=== PATIENT | male | born 1955 | race Caucasian/White ===

== ENCOUNTER → 2024-02-06 10:48 | Outpatient (REF) | payer OTHER, SELFPAY | LOC: RAD 10:48 | PROVIDERS: ATTENDING PHYSICIAN Physician Assistant | DX: M54.50 Low back pain, unspecified (principal); M53.3 Sacrococcygeal disorders, not elsewhere classified | CPT/HCPCS: 72110; 72220 ==

== ENCOUNTER → 2024-02-23 14:45 | Outpatient (REF) | payer OTHER, SELFPAY | LOC: HWRCS 14:45 | PROVIDERS: ATTENDING PHYSICIAN Physician Assistant | DX: I10 Essential (primary) hypertension (principal); R01.1 Cardiac murmur, unspecified | CPT/HCPCS: 93306 ==

== ENCOUNTER → 2024-03-26 11:12 | Outpatient (REF) | payer OTHER, SELFPAY | LOC: RAD 11:12 | PROVIDERS: ATTENDING PHYSICIAN Nurse Practitioner Adult Health; FAMILY PHYSICIAN Family Medicine | DX: D64.9 Anemia, unspecified (principal); R53.82 Chronic fatigue, unspecified; M54.50 Low back pain, unspecified; M54.51 Vertebrogenic low back pain | CPT/HCPCS: 73523 ==

== ENCOUNTER → 2024-04-24 20:06 | Outpatient (REF) | payer OTHER, SELFPAY | LOC: MRI 20:06 | PROVIDERS: ATTENDING PHYSICIAN Nurse Practitioner Adult Health; FAMILY PHYSICIAN Family Medicine | DX: D64.9 Anemia, unspecified (principal); R53.82 Chronic fatigue, unspecified; M54.50 Low back pain, unspecified | CPT/HCPCS: 72158; A9575 ==

== ENCOUNTER → 2024-05-15 06:50 | Outpatient (REF) | payer OTHER, SELFPAY ==
[2024-05-15 07:20] VITALS: BP 136/87; BP_SYST 62
[2024-05-15 07:21] LABS: Hematocrit 30.3 % (39.0-52.0); Hemoglobin 10.4 g/dL (13.0-18.0); Mean Corp Hgb Conc. 34.3 g/dL (33.0-37.0); Mean Corpuscular Hgb 33.5 pg (27.0-31.0); Mean Corpuscular Volume 97.7 fL (80.0-94.0); Mean Platelet Volume 9.2 fL (7.4-10.4); Platelet Count 253 10^3/uL (130-400); Red Cell Dist. Width 14.5 % (11.5-14.5); White Blood Cell Count 5.8 10^3/uL (4.8-10.8)
[2024-05-15 07:49] LABS: INR 1.01; PT 13.1 Sec (11.4-14.6)
[2024-05-15 08:10] LABS: % Basophils 0.2 % (0-2); % Eosinophils 1.5 % (0-6); % Immature Granulocytes 1.7 % (0-0.5); % Lymphocytes 50.2 % (20.5-51.1); % Monocytes 9.3 % (1.7-9.3); % Neutrophils 37.1 % (42.2-75.2); Absolute Eosinophils 0.1 10^3/uL (0-0.7); Absolute Immature Granulocytes 0.1 10^3/uL (0-0.05); Absolute Lymphocytes 2.9 10^3/uL (1.2-3.4); Absolute Monocytes 0.5 10^3/uL (0.1-0.6); Absolute Neutrophils 2.2 10^3/uL (1.4-6.5); Nucleated Red Blood Cells % 0 % (-)
[2024-05-15 09:07] VITALS: BP 122/76
== END ==
LOC: RADI 06:50
PROVIDERS: ATTENDING PHYSICIAN Internal Medicine Hematology & Oncology; FAMILY PHYSICIAN Family Medicine
DX: C90.00 Multiple myeloma not having achieved remission (principal)
CPT/HCPCS: 88305; 88311; 88312; 36415; 38222; 77012; 85025; 85610; 88313; 88341; 88342

== ENCOUNTER → 2024-06-07 08:17 | Outpatient (REF) | payer OTHER, SELFPAY | LOC: PET 08:17 | PROVIDERS: ATTENDING PHYSICIAN Internal Medicine Hematology & Oncology | DX: C90.00 Multiple myeloma not having achieved remission (principal) | CPT/HCPCS: 78816; A9552 ==

== ENCOUNTER → 2024-06-11 16:00 | Outpatient (REF) | payer OTHER, SELFPAY ==
[2024-06-11 15:16] LABS: Hematocrit 29.1 % (39.0-52.0); Mean Corp Hgb Conc. 34.4 g/dL (33.0-37.0); Mean Corpuscular Hgb 32.8 pg (27.0-31.0); Mean Corpuscular Volume 95.4 fL (80.0-94.0); Mean Platelet Volume 9.6 fL (7.4-10.4); Platelet Count 263 10^3/uL (130-400); Red Blood Cell Count 3.05 10^6/uL (4.70-6.10); Red Cell Dist. Width 14.3 % (11.5-14.5); White Blood Cell Count 5.1 10^3/uL (4.8-10.8)
[2024-06-11 15:18] LABS: ALT (SGPT) 15 U/L (0-50); AST (SGOT) 20 U/L (17-59); Alkaline Phosphatase 107 U/L (38-126); Blood Urea Nitrogen 18 mg/dl (9-20); Calcium 10.6 mg/dl (8.4-10.2); Carbon Dioxide 25 mmol/L (22-30); Chloride 105 mmol/L (98-107); Glucose 99 mg/dl (70-99); Potassium 4.4 mmol/L (3.5-5.1); Sodium 141 mmol/L (135-145); Total Bilirubin 0.2 mg/dl (0.2-1.3); Total Protein 8.2 g/dl (6.3-8.2); eGFR > 60.00
[2024-06-11 16:52] LABS: % Basophils 0.2 % (0-2); % Eosinophils 1.8 % (0-6); % Immature Granulocytes 1.2 % (0-0.5); % Lymphocytes 50.7 % (20.5-51.1); % Monocytes 8.3 % (1.7-9.3); % Neutrophils 37.8 % (42.2-75.2); Absolute Eosinophils 0.1 10^3/uL (0-0.7); Absolute Immature Granulocytes 0.1 10^3/uL (0-0.05); Absolute Lymphocytes 2.6 10^3/uL (1.2-3.4); Absolute Monocytes 0.4 10^3/uL (0.1-0.6); Absolute Neutrophils 1.9 10^3/uL (1.4-6.5); Nucleated Red Blood Cells % 0 % (-)
== END ==
LOC: OIDL 16:00
PROVIDERS: ATTENDING PHYSICIAN Internal Medicine Hematology & Oncology
DX: D64.9 Anemia, unspecified (principal)
CPT/HCPCS: 80053; 85025; 86850; 86900; 86901

== ENCOUNTER → 2024-10-16 17:14 | Outpatient (REF) | payer OTHER, SELFPAY | LOC: RAD 17:14 | PROVIDERS: ATTENDING PHYSICIAN Family Medicine | DX: R06.02 Shortness of breath (principal) | CPT/HCPCS: 71046 ==

== ENCOUNTER 2024-10-19 16:28 | Inpatient (IN) | payer OTHER, SELFPAY ==
[2024-10-19] VITALS (11 sets, daily range): BP systolic 112–175; BP diastolic 59–91; BMI 29.0
[2024-10-19 13:30] LABS: Hematocrit 32.7 % (39.0-52.0); Hemoglobin 11.4 g/dL (13.0-18.0); Mean Corp Hgb Conc. 34.9 g/dL (33.0-37.0); Mean Corpuscular Hgb 32.5 pg (27.0-31.0); Mean Corpuscular Volume 93.2 fL (80.0-94.0); Mean Platelet Volume 9.5 fL (7.4-10.4); Platelet Count 233 10^3/uL (130-400); Red Blood Cell Count 3.51 10^6/uL (4.70-6.10); Red Cell Dist. Width 14.1 % (11.5-14.5); White Blood Cell Count 4.8 10^3/uL (4.8-10.8)
[2024-10-19 13:36] LABS: Lactic Acid 1.2 mmol/L (0.7-2.0)
[2024-10-19 13:39] LABS: ALT (SGPT) 50 U/L (0-50); AST (SGOT) 48 U/L (17-59); Albumin 3.6 g/dl (3.5-5.0); Alkaline Phosphatase 89 U/L (38-126); Blood Urea Nitrogen 16 mg/dl (9-20); Calcium 6.6 mg/dl (8.4-10.2); Carbon Dioxide 33 mmol/L (22-30); Chloride 92 mmol/L (98-107); Glucose 122 mg/dl (70-99); Sodium 134 mmol/L (135-145); Total Bilirubin 0.3 mg/dl (0.2-1.3); Total Protein 6.2 g/dl (6.3-8.2); eGFR > 60.00
[2024-10-19 14:02] LABS: % Basophils 0.4 % (0-2); % Eosinophils 0.8 % (0-6); % Immature Granulocytes 0.8 % (0-0.5); % Lymphocytes 17.9 % (20.5-51.1); % Monocytes 9.5 % (1.7-9.3); % Neutrophils 70.6 % (42.2-75.2); Absolute Lymphocytes 0.9 10^3/uL (1.2-3.4); Absolute Monocytes 0.5 10^3/uL (0.1-0.6); Absolute Neutrophils 3.4 10^3/uL (1.4-6.5); Nucleated Red Blood Cells % 0 % (-)
--- NOTE | 2024-10-19 15:41 | ED.GENMED ---
History of Present Illness
General
Chief Complaint: Cough
Source: patient, spouse and previous radiology exam (Chest x-ray shows pneumonia from 10/16/2024)
Exam Limitations: none
Time Seen by Provider: 10/19/24 15:17
Nursing documentation reviewed up to this point in time: agreed with
History of Present Illness
History of Present Illness:
69-year-old male presents emergency department due to shortness of breath and cough. He is under current treatment for multiple myeloma. He was diagnosed with pneumonia 3 days ago and placed on doxycycline. He is not getting better. Feels short
of breath.
Past History
Past History
ED Past Medical History: Cancer (Multiple myeloma) and Hypothyroidism
ED Past Surgical History: Other (Thyroidectomy. Takes Synthroid)
Social History
Tobacco: Non-smoker
Alcohol: None
Drug: None
Personal:
Living: with family
Employment: Employed
Review of Systems
Review of Systems
Allergies reviewed?: Yes
All Other Systems: Not applicable
Constitutional: Reports no symptoms
EENT: Reports no symptoms
Respiratory: Reports cough and trouble breathing
Cardiac: Reports no symptoms
ABD/GI: Reports no symptoms
: Reports no symptoms
Musculoskeletal: Reports no symptoms
Skin: Reports no symptoms
Neurological: Reports other (Confusion)
Endocrine: Reports no symptoms
Hematologic/Lymphatic: Reports no symptoms
Psychiatric: Reports no symptoms
Phy Exam
Physical Exam
Physical Exam:
Physical Exam
General: Afebrile
Neck: supple. no meningeal signs. normal posterior pharynx
Heart: s1/s2 regular rate and rhythm, no murmur. equal radial
pulses.
HEENT: Pupils equal round reactive to light, EOMI
Lungs: Moderate respiratory distress. Rhonchi bilaterally
Abdomen: normal bowel sounds. not tender. no CVAT
Neuro: alert and oriented. no focal neurological deficits cranial nerves II through XII intact
Skin: no rash
Psychiatric: well kept. interactive and cooperative
Extremities: no edema. no calf tenderness. negative homans. good distal pulses
Course
Orders/Labs/Results
Orders:
Orders
10/19/24 12:59
CR Chest - 2 Views Urgent
Comment:
Reason For Exam: cough
10/19/24 13:12
Complete Blood Count/With Diff Urgent
Comprehensive Metabolic Panel Urgent
Lactic Acid Urgent
10/19/24 15:37
Cardiac Monitoring- Treatment ONCE
IV Insert/Care/Rem.- Treatment PRN
*Vancomycin 2,000 mg Loading Dose (consider for >/= 70 kg) Vancomycin [Vancocin] 2,000 mg 0.9% Sodium Chloride 500 ml [Nss] 500 ml IV NOW
Calcium Gluc 2 g (9.3 mEq)/100 mL over 1 hr ONCE Calcium Gluconate 2 gram/100mL [Calcium Gluconate] 2 gram in 100 ml IV ONCE
Cefepime HCl [Maxipime] 2,000 mg IV NOW STA
KCL 40 mEq/250 mL NSS over 4 hours NOW Potassium Chloride [KCl] 40 meq 0.9% Sodium Chloride 250 ml [Nss] 250 ml IV NOW
Potassium Chloride [KCl] 40 meq PO NOW STA
Pulse Ox/cont/shift [RESP] Stat
Quantity: 1
10/19/24 15:45
Blood Culture Q30M
GISELLE Source: Blood/Venous
Specimen Description:
10/19/24 16:15
Blood Culture Q30M
GISELLE Source: Blood/Venous
Specimen Description:
Abnormal Lab Results
10/19/24
13:12
RBC 3.51 L 10^6/uL
(4.70-6.10)
Hgb 11.4 L g/dL
(13.0-18.0)
Hct 32.7 L %
(39.0-52.0)
MCH 32.5 H pg
(27.0-31.0)
Absolute Lymphs (auto) 0.9 L 10^3/uL
(1.2-3.4)
Immature Gran % 0.8 H %
(0-0.5)
Lymphocytes % 17.9 L %
(20.5-51.1)
Monocytes % 9.5 H %
(1.7-9.3)
Sodium 134 L mmol/L
(135-145)
Potassium 3.0 L mmol/L
(3.5-5.1)
Chloride 92 L mmol/L
(98-107)
Carbon Dioxide 33 H mmol/L
(22-30)
Glucose 122 H mg/dl
(70-99)
Calcium 6.6 L* mg/dl
(8.4-10.2)
Total Protein 6.2 L g/dl
(6.3-8.2)
10/19/24 13:12
10/19/24 13:12
Vital Signs
Initial and Last Documented VS:
Initial Vital Signs
Temp Pulse Resp BP Pulse Ox
98.4 F 76 20 175/91 95
10/19/24 12:56 10/19/24 12:56 10/19/24 12:56 10/19/24 12:56 10/19/24 12:56
Last Documented Vital Signs
Temp Pulse Resp BP Pulse Ox
98.4 F 71 22 126/68 93
10/19/24 12:56 10/19/24 15:05 10/19/24 15:05 10/19/24 15:05 10/19/24 15:05
MDM/Problems Addressed
Differential Diagnosis Includes:
Pneumonia, influenza
MDM/Problems Addressed:
69-year-old male with bilateral pneumonia, hypokalemia, hypocalcemia, intermittent hypoxia. History of multiple myeloma. Will treat hypokalemia, hypocalcemia and pneumonia with IV KCl, IV calcium gluconate and cefepime and vancomycin. Admit to
hospitalist.
Chronic conditions affecting care: Cancer (multiple myeloma)
Acute Exacerbation and/or Progression of Chronic Illness: Cancer
*Radiology
Radiology exam reviewed: preliminary read by ED provider (Chest x-ray shows bilateral pneumonia)
*Pulse Oximetry
Patient hypoxic: yes
*Critical Care Note
Total Time (30-74mins, 75-104mins- exclusive of procedures): Not Applicable
ED Attending Note
-
Portions of this chart may have been created with voice recognition software.� Occasional wrong word or��sound alike� substitutions may have occurred due to the inherent limitations of voice recognition software.
Discharge Plan
Departure
Patient Disposition: Admit
Date of Disposition: 10/19/24
Time of Disposition: 15:49
Admit to: Telemetry
Presentation/result/management discussed w/ accepting MD/DO: Hospitalist
Patient with high blood pressure during this ER visit?: Yes
Condition: Fair
Discharge Problem:
Bilateral pneumonia, Hypocalcemia, Acute hypokalemia, Multiple myeloma
Prescriptions:
No Action
doxycycline hyclate 100 mg Capsule
100 mg PO BID
ondansetron HCl [Zofran] 8 mg Tablet
8 mg PO [id number] PRN (Reason: nausea)
loperamide 2 mg Tablet
2 mg PO Q4HPRN PRN (Reason: diarrhea)
acyclovir 400 mg Tablet
400 mg PO BID
aspirin 81 mg Tablet,Delayed Release (Dr/Ec)
81 mg PO DAILY
calcium carbonate [Caltrate 600] 600 mg calcium (1,500 mg) Tablet
600 mg PO BID
dexamethasone 4 mg Tablet
20 mg PO UD
Rx Instructions:
take the day of treatment
montelukast [Singulair] 10 mg Tablet
10 mg PO UD
Rx Instructions:
take the day before and 2 after treatment(s)
levothyroxine [Synthroid] 112 mcg Tablet
224 mcg PO DAILY
bortezomib [Velcade] 3.5 mg Recon Soln
2.4 mg IV Q2W
lenalidomide [Revlimid] 10 mg Capsule
10 mg PO UD
Rx Instructions:
take for 21 days and 7 days off
Xgeva 120 mg/1.7 mL (70 mg/mL) Solution
120 mg SC Q4W
Referrals:
Octavio Torres MD [Family Provider] -
Interventions
Interventions:
*General Assessment Last Done: 10/19/24 12:56
Discharge Date and Time
Print Language: RWANDAN
--- NOTE | 2024-10-19 15:51 | HPS.HSE ---
Family Physician
-
Family Physician: Octavio Torres
Chief Complaint
-
Short of breath, cough
History of Present Illness
69-year-old male with past medical history for multiple myeloma, history of thyroid cancer, hypothyroidism presented to his head shortness of breath and cough for past 10 days. Short of breath worse with exertion. Cough with off-white colored
sputum. Patient had a temp of 100.1 on Tuesday. He has been taking doxycycline for past 3 days. Stated some headache and chills. Denied chest pain. Patient complained of left lower quadrant pain. He has been getting right upper quadrant lump
as soon as he eats, for which he has been scheduled to get some test on November 09. Patient stated couple episodes of vomiting which resolved. He is still having diarrhea for past 10 days. Denied dysuria hematuria. he is under current treatment
for multiple myeloma. His last chemo was 114.
Chest x-ray with pneumonia. Patient received IV cefepime and Vanco in ER patient was also noted to have hypokalemia and hypocalcemia. Which was supplemented with IV and oral KCl, calcium in ER. Admitting for further management
Medical History
Past Medical History
Past Medical History: Reports Other
Additional Past Medical History:
Multiple myeloma
History of thyroid cancer
Hypothyroidism
Past Surgical History: Reports Other
Additional Past Surgical History:
Thyroidectomy
Right synovectomy
Right tunnel release
Social History
Tobacco: Non-smoker
Alcohol: None
Drug: None
Personal:
Living: With Family
Family History
Family History: Not pertinent
Allergies / Home Medications
Allergies reflects when Allergies were last updated in [employer]
Home Medications with original date entered in [employer]
Allergy/Medication List:
Allergies
Allergy/AdvReac Type Severity Reaction Status Date / Time
No Known Allergies Allergy Verified 10/19/24 12:56
Home Medications
acyclovir 400 mg tablet 400 mg PO BID 10/19/24
aspirin 81 mg tablet,delayed release 81 mg PO DAILY 10/19/24
bortezomib 3.5 mg injection powder for solution (Velcade) 2.4 mg IV Q2W 10/19/24
calcium carbonate 600 mg PO BID 10/19/24
denosumab 120 mg/1.7 mL (70 mg/mL) subcutaneous solution (Xgeva) 120 mg SC Q4W 10/19/24
dexamethasone 4 mg tablet 20 mg PO UD 10/19/24
doxycycline hyclate 100 mg capsule 100 mg PO BID 10/19/24
lenalidomide 10 mg capsule (Revlimid) 10 mg PO UD 10/19/24
levothyroxine 112 mcg tablet (Synthroid) 224 mcg PO DAILY 10/19/24
loperamide 2 mg tablet 2 mg PO Q4HPRN PRN diarrhea 10/19/24
montelukast 10 mg tablet (Singulair) 10 mg PO UD 10/19/24
ondansetron HCl 8 mg tablet 8 mg PO [id number] PRN nausea 10/19/24
Review of Systems
-
Constitutional: Reports Fever and Fatigue
EENT: Reports No Symptoms
Respiratory: Reports Cough and Trouble Breathing
Cardiac: Reports No Symptoms
Abdomen/GI: Reports Abdominal Pain, Nausea, Vomiting and Diarrhea
: Reports No Symptoms
Musculoskeletal: Reports No Symptoms
Skin: Reports No Symptoms
Neurological: Reports Headache and Weakness
Endocrine: Reports No Symptoms
Hematologic/Lymphatic: Reports No Symptoms
Psych: Reports No Symptoms
Physical Exam
Vital Signs
Vital Signs
Temp Pulse Resp BP Pulse Ox
98.4 F 71 22 126/68 93
10/19/24 12:56 10/19/24 15:05 10/19/24 15:05 10/19/24 15:05 10/19/24 15:05
Physical Exam
General: Well Developed, Well Nourished and No Apparent Distress
HEENT: NormoCephalic, Moist mucous membranes and Atraumatic
Respiratory: Clear
Cardiac: S1/S2 and Regular Rhythm; No Murmur or Rub
GI: Soft, Non Tender, Non Distended and Normal Bowel Sounds; No Organomegaly
Rectal: Deferred by Provider
Musculoskeletal: No Clubbing, No Cyanosis and No Edema
Skin: No Rash
Neuro: AO x 3 and Nonfocal/grossly intact
Psych: Calm
Laboratory Results
-
10/19/24 13:12
10/19/24 13:12
Laboratory Results
Lactic Acid 1.2 mmol/L (0.7-2.0) 10/19/24 13:12
Total Bilirubin 0.3 mg/dl (0.2-1.3) 10/19/24 13:12
AST 48 U/L (17-59) 10/19/24 13:12
ALT 50 U/L (0-50) 10/19/24 13:12
Alkaline Phosphatase 89 U/L (38-126) 10/19/24 13:12
Data Reviewed
-
Diagnostic Radiology: Report Reviewed by me
Lab Data: Labs Reviewed by me
Impression/Plan
-
# Bilateral pneumonia
# Influenza A
-Vanco and cefepime continue
-COVID pending
-Chest x-ray with impression of patchy bibasilar/bilateral airspace disease suspicious for multifocal pneumonia, unchanged to slightly worsened compared to the prior study. No parapneumonic effusions.
-Tylenol as needed for fever and pain
-Mucinex for cough
-Nebs as needed for short of breath and wheezing
-Tamiflu continued
# Abdominal tenderness associate with nausea vomiting diarrhea likely gastroenteritis
-Clear liquid diet, to advance as tolerated
-Continue to monitor
-stool for culture and norovirus
-Obtain C. difficile as he was on doxycycline recently
#Hypokalemia/hypocalcemia likely from nausea vomiting diarrhea
-Patient received calcium gluconate in ER
-IV KCl +40 of oral K in ER
-BMP in a.m.
# History of multiple myeloma
-Last chemo on 10/09, next chemo in 2 weeks
-Acyclovir continued
# Anemia of chronic disease
-Hemoglobin stable at 11.4
-No active bleeding
-Continue to monitor
# History of thyroid cancer status post thyroidectomy
# Postsurgical hypothyroidism
-Levothyroxine continued
# DVT prophylaxis
-Lovenox subcu
# CODE STATUS
-Full code
[2024-10-19] MEDS: KCL 270 MEQ IV (16:22)
[2024-10-19] MEDS: CALCIUM GLUCONATE 100 IV (16:23)
[2024-10-19] MEDS: VANCOCIN 540 MG IV (16:25)
[2024-10-19] MEDS: MAXIPIME 2000 MG IV (16:27)
[2024-10-19] MEDS: KCL 40 MEQ PO (16:27)
[2024-10-19 16:56] LABS: COVID-19 Antigen Negative (Negative)
--- NOTE | 2024-10-19 17:07 | W.PN.UPDATE ---
Update Note
Progress Note Update
This is an addendum to the H&P written by Cha Grajeda on 10/19/2023.� Patient seen examined independently with POP SINGER.
69-year-old male past medical history of multiple myeloma on chemotherapy, hypothyroidism, presenting with shortness of breath and cough for the past 10 days.� Temperature 100.1.� Doxycycline for 3 days.� Also with vomiting and diarrhea.
Patient positive for influenza here.� Chest x-ray shows patchy bibasilar/bilateral airspace disease suspicious for multifocal pneumonia.
Labs show hypokalemia.� Hypocalcemia.
Presentation consistent with influenza however given that patient is immunocompromised and duration of symptoms we will treat for secondary bacterial pneumonia as well. Diarrhea could be secondary to Influenza.
IV fluids.� Check sputum culture, Legionella, strep antigen, MRSA.� Tamiflu started.� Vancomycin/cefepime.� Replete electrolytes. Check stool studies.
[2024-10-19] MEDS: TAMIFLU 75 MG PO (19:43)
--- NOTE | 2024-10-19 21:00 | PTCARENOTE ---
Pt transferred from ED. Pt ambulated into room with assistance. Pt flu positive. Pt oriented to unit, call carrera within reach, bed in lowest position. Will continue with current plan.
--- NOTE | 2024-10-19 21:03 | PHA.VAN.IN ---
Assessment
- Assessment
Renal Function: Appears similar to baseline
Concomitant Antimicrobials: CEFEPIME
- Previous Dosing Experience
Previous Regimen: NONE
AUC Dosing Plan
- Dosing Variables
Dosing Weight (kg): 91.8
Dosing CrCl (ml/min): 100
Vd coefficient (L/kg): 0.7
- Empiric Dosing
Initial / Loading Dose: 2GM
Maintenance Regimen: 1500MG IV Q12H
Estimated AUC (mcg*h/mL): 569
Estimated Peak (mcg*h/mL): 35.9
Estimated Trough (mcg/ml): 14.4
Estimated Half Life (H): 7.9
Pharmacokinetics Vancomycin I
- -
Patient Age: 69
Patient Sex: Male
Vancomycin Day #: 1
Indication: Pulmonary/Respiratory
Requesting Provider: JAYRO
Height / Weight:
Height 5 ft 10 in
Actual Weight 91.767 kg
Pertinent Past Medical History: MULTIPLE MYELOMA
- Vital Signs / Lab Results
Temp Pulse Resp BP Pulse Ox
99.4 F 78 18 147/77 95
10/19/24 20:28 10/19/24 20:28 10/19/24 20:28 10/19/24 20:28 10/19/24 20:28
Lab Results - Hematology
10/19/24
13:12
WBC 4.8
Lab Results - Chemistry
10/19/24
13:12
BUN 16
Creatinine 0.7
Albumin 3.6
10/19/24
13:12
Lactic Acid 1.2
Microbiology Results
10/19/24 16:09 Influenza Types A & B (DARIEN) - Final
Nasal Swab Influenza A Positive, NAAT
[2024-10-19] MEDS: ZOVIRAX 400 MG PO (21:35)
[2024-10-19] MEDS: MUCINEX 600 MG PO (21:35)
[2024-10-19] MEDS: LOVENOX 40 MG SC (21:36)
[2024-10-19] MEDS: NSS 1000 IV (21:36)
[2024-10-20] MEDS: MAXIPIME 2000 MG IV ×3 (00:15→15:59)
[2024-10-20] MEDS: STERILE WATER FOR INJECTION 10 ML IV ×3 (00:16→15:59)
[2024-10-20] MEDS: VANCOCIN 530 MG IV ×2 (05:36→17:55)
[2024-10-20] MEDS: SYNTHROID 224 MCG PO (05:41)
[2024-10-20] MEDS: NSS 1000 IV (05:42)
[2024-10-20 07:05] VITALS: BP 123/72
--- NOTE | 2024-10-20 07:49 | PHA.VAN.FU ---
Vancomycin Assessment / Plan
- Assessment
Renal Function: Stable
WBC's are: WNL
In the past 24 hrs, patient has been: Afebrile
Concomitant Antimicrobials: cefepime
- Dosing Plan
Continue: 1500mg q12h
- Monitoring Plan
No level(s) ordered at this time: consider for tomorrow
respiratory culture ordered
- Follow Up
Pharmacy will continue to follow.
Vancomycin Follow UP
- -
Patient Age: 69
Patient Sex: Male
Vancomycin Day #: 2
Indication: Pulmonary/Respiratory
Requesting Provider: JAYRO
Height / Weight:
Height 5 ft 10 in
Actual Weight 91.767 kg
Pertinent Past Medical History: MULTIPLE MYELOMA
- Vital Signs / Lab Results
Temp Pulse Resp BP Pulse Ox
97.3 F 75 18 112/59 96
10/19/24 23:14 10/19/24 23:14 10/19/24 23:14 10/19/24 23:14 10/19/24 23:14
Lab Results - Hematology
10/19/24
13:12
WBC 4.8
Lab Results - Chemistry
10/19/24
13:12
BUN 16
Creatinine 0.7
Albumin 3.6
10/19/24
13:12
Lactic Acid 1.2
Microbiology Results
10/19/24 16:09 Influenza Types A & B (DARIEN) - Final
Nasal Swab Influenza A Positive, NAAT
[2024-10-20] MEDS: ASPIR LOW (ENTERIC COATED) 81 MG PO (07:52)
[2024-10-20 07:54] LABS: Blood Urea Nitrogen 14 mg/dl (9-20); Calcium 6.3 mg/dl (8.4-10.2); Carbon Dioxide 30 mmol/L (22-30); Chloride 97 mmol/L (98-107); Estimated Creatinine Clearance 120 ml/min; Glucose 108 mg/dl (70-99); Potassium 3.4 mmol/L (3.5-5.1); Sodium 135 mmol/L (135-145); eGFR > 60.00
[2024-10-20] MEDS: TAMIFLU 75 MG PO ×2 (07:55→20:10)
[2024-10-20] MEDS: ZOVIRAX 400 MG PO ×2 (07:55→20:09)
[2024-10-20] MEDS: MUCINEX 600 MG PO ×2 (07:56→20:09)
[2024-10-20 09:45] LABS: Intact PTH 74.2 pg/ml (13.6-85.8)
[2024-10-20] MEDS: CALCIUM GLUCONATE 290 MG IV (09:47)
[2024-10-20 09:50] LABS: Vitamin D, 25-OH*** 34.6 ng/mL (30-80)
[2024-10-20] MEDS: KCL 40 MEQ PO (10:57)
[2024-10-20 11:10] VITALS: BMI 29.0
--- NOTE | 2024-10-20 11:44 | W.PN.HOSP.TC ---
Today's Communication/Plan
-
Tamiflu
Abx
F/U cultures
Ca and K repletion
Oncology consult
Assessment / Plan
Assessment / Plan
69-year-old male past medical history of multiple myeloma on chemotherapy, hypothyroidism, presenting with shortness of breath and cough for the past 10 days.� Temperature 100.1.� Doxycycline for 3 days.� Also with vomiting and diarrhea.
Patient positive for influenza here.�
Chest x-ray shows patchy bibasilar/bilateral airspace disease suspicious for multifocal pneumonia.
Labs show hypokalemia.� Hypocalcemia.
# Influenza A
Superimposed Bacterial Bilateral pneumonia
-continue Tamiflu
-continue Cefepime/Vanco
-Covid negative
- F/U MRSA screen and sputum culture
-Chest x-ray with impression of patchy bibasilar/bilateral airspace disease suspicious for multifocal pneumonia, unchanged to slightly worsened compared to the prior study. No parapneumonic effusions.
-Tylenol as needed for fever and pain
-Mucinex for cough
-Nebs as needed for short of breath and wheezing
# Abdominal tenderness associate with nausea vomiting diarrhea likely related to Influenza
-C. Diff and Norovirus negative
#Hypokalemia/hypocalcemia
-calcium corrected 7.1 this AM
-Mag OK
-replete K and
-start vitamin D repletion
-add on PTH
-resume home supplements tomorrow
# History of multiple myeloma
-Last chemo on 10/09, next chemo in 2 weeks
-Acyclovir continued
-Oncology consult
# Anemia of chronic disease
-Hemoglobin stable at 11.4
-No active bleeding
-Continue to monitor
# History of thyroid cancer status post thyroidectomy
# Postsurgical hypothyroidism
-Levothyroxine continued
# DVT prophylaxis
-Lovenox subcu
# CODE STATUS
-Full code
Anticipated Discharge: 24 - 48 hours
Subjective/Interval History
-
Date of Service: October 20, 2024
feeling better than yesterday
continuing to have diarrhea
no vomiting
Objective Data
-
Labs:
Laboratory Results
10/20/24 10/20/24
06:38 15:00
Sodium 135
Potassium 3.4 L
Chloride 97 L
Carbon Dioxide 30
BUN 14
Creatinine 0.6 L
Glucose 108 H
Calcium 6.3 L* Pending
Vital Signs:
Vital Signs
Temp Pulse Resp BP Pulse Ox
98.7 F 75 18 123/72 98
10/20/24 07:05 10/20/24 07:05 10/20/24 07:05 10/20/24 07:05 10/20/24 07:05
Review of Systems
-
History Source: Patient
All other systems: Reviewed and negative
Physical Exam
-
General: No Apparent Distress
HEENT: PERRLA
Respiratory: Rhonchi; Negative Wheezes
Cardiac: Regular Rhythm and S1/S2
GI: Soft and Nontender
Musculoskeletal: No Edema
Skin: Warm and Dry; Negative Rash
Neuro: AO x 3
Psych: Calm
Data Reviewed
-
Diagnostic Radiology: Report Reviewed by me
Labs: Labs Reviewed by me
--- NOTE | 2024-10-20 14:20 | CON.ONC ---
Impression
Impression
multiple myeloma
pneumonia
flu
diarrhea
Plan
Plan
1. SOB/ pneumonia/ flu
-broad spectrum antibiotics -in immunocompromised state
-IVF/ electrolyte management / supportive care
2. Multple myeloma - responding to DRVD - w/ Dr. Cody
-follow CBC
-cont acyclovir prophylaxis
-will adjust outpt f/u
Will continue to follow with you.
Patient History
Past-Medical/Surgical History
69y/o male seen in hematology consultation today regarding h/o multiple myeloma.
The patient was diagnosed w/ multiple myeloma in April, and has been receiving treatment under the care of Dr. Cody w/ Daratumumab/ Revlimid/Velcade and dexamethasone. His serum protein levels have responded.
He presented to the [facility] ER yesterday w/ SOB, fevers, and diarrhea. CXR imaging in the ER revealed pneumonia. Testing for influenza was positive.
Clinically, today, he feels slighty better. Afebrile. He continues to have cough/ congestion and SOB. Diarrhea persists.
Patient Medication
�Medication �Instructions �Recorded �Confirmed �Last Taken �Type
acyclovir 400 mg tablet 400 mg PO BID ANTI VIRAL 10/19/24 10/19/24 7 Days Ago History
~10/12/24
aspirin 81 mg tablet,delayed 81 mg PO DAILY Blood Clot 10/19/24 10/19/24 10/19/24 History
release Prevention/Tx
bortezomib 3.5 mg injection powder 2.4 mg IV Q2W Antineoplastic Agent 10/19/24 10/19/24 Unknown History
for solution (Velcade)
calcium carbonate 600 mg PO BID Supplement 10/19/24 10/19/24 8 Days Ago History
~10/11/24
denosumab 120 mg/1.7 mL (70 mg/mL) 120 mg SC Q4W Bone-Modifying Agent 10/19/24 10/19/24 Unknown History
subcutaneous solution (Xgeva)
dexamethasone 4 mg tablet 20 mg PO UD INFLAMMATION 10/19/24 10/19/24 Unknown History
doxycycline hyclate 100 mg capsule 100 mg PO BID Infection 10/19/24 10/19/24 10/19/24 History
lenalidomide 10 mg capsule 10 mg PO UD Angiogenesis Inhibitor 10/19/24 10/19/24 Unknown History
(Revlimid)
levothyroxine 112 mcg tablet 224 mcg PO DAILY Thyroid 10/19/24 10/19/24 8 Days Ago History
(Synthroid) ~10/11/24
loperamide 2 mg tablet 2 mg PO Q4HPRN PRN diarrhea 10/19/24 10/19/24 3 Days Ago History
~10/16/24
montelukast 10 mg tablet 10 mg PO UD Lung/Breathing Issues 10/19/24 10/19/24 Unknown History
(Singulair)
ondansetron HCl 8 mg tablet 8 mg PO [id number] PRN nausea 10/19/24 10/19/24 Unknown History
Active Medications
Generic Name Dose Route Start Last Admin
Trade Name Freq PRN Reason Stop Dose Admin
Acetaminophen 650 mg 10/19/24 20:26
Acetaminophen 325 Mg Tablet PO 11/16/24 20:25
Q4HPRN PRN
if temp > 101 F
Acyclovir Sodium 400 mg 10/19/24 21:00 10/20/24 07:55
Acyclovir Sodium 200 Mg Capsule PO 10/29/24 20:59 400 mg
BID FAUZIA Administration
Albuterol/Ipratropium 3 ml 10/19/24 20:26
Ipratropium 0.5/Albuterol 3 Mg (3 Ml Ampul) INH
R Q4HPRN PRN
sob/wheezing
Protocol
Aspirin 81 mg 10/20/24 08:00 10/20/24 07:52
Aspirin 81 Mg (Enteric Coated) Tablet PO 11/17/24 07:59 81 mg
DAILY FAUZIA Administration
Cefepime HCl 2,000 mg 10/20/24 00:00 10/20/24 07:54
Cefepime Hcl 2,000 Mg/12.5 Ml Vial IV 2,000 mg
Q8H FAUZIA Administration
Cholecalciferol 25 mcg 10/20/24 12:00
Cholecalciferol (Vitamin D3) 25 Mcg Tablet (1,000 Units) PO 11/17/24 11:59
DAILY FAUZIA
Enoxaparin Sodium 40 mg 10/19/24 20:26 10/19/24 21:36
Enoxaparin Sodium 40 Mg/0.4 Ml Syringe SC 11/16/24 20:25 40 mg
QPM FAUZIA Administration
Guaifenesin 600 mg 10/19/24 20:26 10/20/24 07:56
Guaifenesin 600 Mg Extended Release Tablet PO 11/16/24 20:25 600 mg
Q12 FAUZIA Administration
Sodium Chloride 1,000 mls @ 100 mls/hr 10/19/24 20:26 10/20/24 05:42
Nss IV 10/20/24 16:25 1,000 mls
.Q10H FAUZIA Administration
Vancomycin HCl 1,500 mg/ 530 mls @ 353.333 mls/hr 10/20/24 06:00 10/20/24 05:36
Sodium Chloride IV 530 mls
Q12H FAUZIA Administration
Protocol
Levothyroxine Sodium 224 mcg 10/20/24 06:00 10/20/24 05:41
Levothyroxine 112 Mcg Tablet PO 11/17/24 05:59 224 mcg
DAILY@0600 FAUZIA Administration
Oseltamivir Phosphate 75 mg 10/20/24 08:00 10/20/24 07:55
Oseltamivir (Tamiflu) 75 Mg Capsule PO 10/25/24 07:59 75 mg
BID FAUZIA Administration
Sodium Chloride 0 flush 10/19/24 21:00
Sodium Chloride 0.9% (Flush) Syringe IV 11/16/24 20:59
PER PROTOCOL FAUZIA
Sterile Water 10 ml 10/20/24 00:00 10/20/24 07:55
Sterile Water For Injection 10 Ml Vial IV 11/17/24 00:00 10 ml
Q8H FAUZIA Administration
Review of Systems
-
A ROS was performed w/ pertinent finding as per HPI.
Physical Exam
-
General: Well Developed and No Apparent Distress
Cardiology: Normal Sinus Rhythm
Extremities: Negative Edema
Neurology: Non Focal
Labs
Lab Results
WBC 4.8 10^3/uL (4.8-10.8) 10/19/24 13:12
RBC 3.51 10^6/uL (4.70-6.10) L 10/19/24 13:12
Hgb 11.4 g/dL (13.0-18.0) L 10/19/24 13:12
Hct 32.7 % (39.0-52.0) L 10/19/24 13:12
MCV 93.2 fL (80.0-94.0) 10/19/24 13:12
MCH 32.5 pg (27.0-31.0) H 10/19/24 13:12
MCHC 34.9 g/dL (33.0-37.0) 10/19/24 13:12
RDW 14.1 % (11.5-14.5) 10/19/24 13:12
Plt Count 233 10^3/uL (130-400) 10/19/24 13:12
MPV 9.5 fL (7.4-10.4) 10/19/24 13:12
Abs Immat Gran (auto) 0.0 10^3/uL (0-0.05) 10/19/24 13:12
Absolute Neuts (auto) 3.4 10^3/uL (1.4-6.5) 10/19/24 13:12
Absolute Lymphs (auto) 0.9 10^3/uL (1.2-3.4) L 10/19/24 13:12
Absolute Monos (auto) 0.5 10^3/uL (0.1-0.6) 10/19/24 13:12
Absolute Eos (auto) 0.0 10^3/uL (0-0.7) 10/19/24 13:12
Absolute Basos (auto) 0.0 10^3/uL (0-0.2) 10/19/24 13:12
Immature Gran % 0.8 % (0-0.5) H 10/19/24 13:12
Neutrophils % 70.6 % (42.2-75.2) 10/19/24 13:12
Lymphocytes % 17.9 % (20.5-51.1) L 10/19/24 13:12
Monocytes % 9.5 % (1.7-9.3) H 10/19/24 13:12
Eosinophils % 0.8 % (0-6) 10/19/24 13:12
Basophils % 0.4 % (0-2) 10/19/24 13:12
Creatinine 0.6 mg/dL (0.7-1.3) L 10/20/24 06:38
Vital Signs
Vital Signs
Temp Pulse Resp BP Pulse Ox
98.7 F 75 18 123/72 98
10/20/24 07:05 10/20/24 07:05 10/20/24 07:05 10/20/24 07:05 10/20/24 07:05
[2024-10-20 15:05] VITALS: BP 138/73
[2024-10-20] MEDS: VITAMIN D3 (cholecalciferol) 25 MCG PO (15:59)
[2024-10-20] MEDS: LOVENOX 40 MG SC (17:54)
[2024-10-21] MEDS: MAXIPIME 2000 MG IV ×4 (00:04→23:27)
[2024-10-21] MEDS: STERILE WATER FOR INJECTION 10 ML IV ×4 (00:04→23:27)
[2024-10-21] MEDS: VANCOCIN 530 MG IV ×2 (05:14→17:44)
[2024-10-21] MEDS: SYNTHROID 224 MCG PO (05:28)
[2024-10-21 07:52] VITALS: BP 121/70
[2024-10-21] MEDS: ASPIR LOW (ENTERIC COATED) 81 MG PO (08:01)
[2024-10-21] MEDS: ZOVIRAX 400 MG PO ×2 (08:01→19:31)
[2024-10-21] MEDS: MUCINEX 600 MG PO ×2 (08:01→19:31)
[2024-10-21] MEDS: VITAMIN D3 (cholecalciferol) 25 MCG PO (08:01)
[2024-10-21] MEDS: TAMIFLU 75 MG PO ×2 (08:01→19:31)
[2024-10-21 08:02] LABS: Ionized Calcium 0.91 mMOL/L (1.15-1.33)
[2024-10-21 08:44] LABS: Blood Urea Nitrogen 6 mg/dl (9-20); Calcium 6.5 mg/dl (8.4-10.2); Carbon Dioxide 29 mmol/L (22-30); Chloride 99 mmol/L (98-107); Estimated Creatinine Clearance 120 ml/min; Glucose 109 mg/dl (70-99); Magnesium 1.9 mg/dl (1.6-2.3); Potassium 3.4 mmol/L (3.5-5.1); Sodium 135 mmol/L (135-145); eGFR > 60.00
--- NOTE | 2024-10-21 08:52 | PHA.VAN.FU ---
Vancomycin Assessment / Plan
- Assessment
Renal Function: Stable
In the past 24 hrs, patient has been: Afebrile
Concomitant Antimicrobials: CEFEPIME
- Dosing Plan
Continue: 1500MG Q12H
- Monitoring Plan
Peak Level: 10/22 @2100
Trough Level: 10/23 @0530
- Follow Up
Pharmacy will continue to follow.
Vancomycin Follow UP
- -
Patient Age: 69
Patient Sex: Male
Vancomycin Day #: 3
Indication: Pulmonary/Respiratory
Requesting Provider: JAYRO
Height / Weight:
Height 5 ft 10 in
Actual Weight 91.767 kg
Pertinent Past Medical History: MULTIPLE MYELOMA
- Vital Signs / Lab Results
Temp Pulse Resp BP Pulse Ox
98.1 F 69 16 138/73 94
10/20/24 23:00 10/20/24 23:00 10/20/24 23:00 10/20/24 15:05 10/21/24 08:15
Lab Results - Hematology
10/19/24
13:12
WBC 4.8
Lab Results - Chemistry
10/19/24 10/20/24 10/21/24
13:12 06:38 07:51
BUN 16 14 6 L
Creatinine 0.7 0.6 L 0.5 L
Estimated Creat Clear 120 120
Albumin 3.6 3.0 L 3.0 L
10/19/24
13:12
Lactic Acid 1.2
Microbiology Results
10/19/24 16:09 Blood Culture - Preliminary
Blood/Venous No Growth in 24 hours- Final report to follow
10/19/24 16:09 Blood Culture - Preliminary
Blood/Venous No Growth in 24 hours- Final report to follow
10/20/24 00:13 Respiratory Culture - Final
Sputum Gram Stain - Preliminary
10/20/24 00:13 C. difficile [facility] Antigen & Toxins - Final
Feces/Stool Negative for toxigenic C.difficile
- Final
Negative for Norovirus GI and GII.
10/19/24 16:09 Influenza Types A & B (DARIEN) - Final
Nasal Swab Influenza A Positive, NAAT
[2024-10-21] MEDS: CALCIUM GLUCONATE 100 IV (09:04)
[2024-10-21] MEDS: KCL 40 MEQ PO (09:04)
--- NOTE | 2024-10-21 11:15 | W.PN.HOSP.TC ---
Today's Communication/Plan
-
possible DC tomorrow
replete Ca
Vanc/Cefepime, stop Vanc if MRSA screen negative
Assessment / Plan
Assessment / Plan
69-year-old male past medical history of multiple myeloma on chemotherapy, hypothyroidism, presenting with shortness of breath and cough for the past 10 days.� Temperature 100.1.� Doxycycline for 3 days.� Also with vomiting and diarrhea.
Patient positive for influenza here.�
Chest x-ray shows patchy bibasilar/bilateral airspace disease suspicious for multifocal pneumonia.
Labs show hypokalemia.� Hypocalcemia.
# Influenza A
Superimposed Bacterial Bilateral pneumonia
-covid negative
-continue Tamiflu (through morning 10/24)
-continue Cefepime/Vanco (day 11/02)
- F/U MRSA screen and sputum culture. If MRSA screen neg stop Vanc
-consider DC tomorrow on Levaquin
-Chest x-ray with impression of patchy bibasilar/bilateral airspace disease suspicious for multifocal pneumonia, unchanged to slightly worsened compared to the prior study. No parapneumonic effusions.
-Tylenol as needed for fever and pain
-Mucinex for cough
-Nebs as needed for short of breath and wheezing
# Abdominal tenderness associate with nausea vomiting diarrhea likely related to Influenza
-C. Diff and Norovirus negative
#Hypokalemia
-replete
Hypocalcemia
-calcium corrected 7.3 this AM
-Mag OK
-start vitamin D repletion
-PTH - not appropriately elevated
-additional IV Calcium today - then increase home calcium to 1G BID
# History of multiple myeloma
-Last chemo on 10/09, next chemo in 2 weeks
-Acyclovir continued
-Oncology consult appreciated
# Anemia of chronic disease
-Hemoglobin stable at 11.4
-No active bleeding
-Continue to monitor
# History of thyroid cancer status post thyroidectomy
# Postsurgical hypothyroidism
-Levothyroxine continued
# DVT prophylaxis
-Lovenox subcu
# CODE STATUS
-Full code
Anticipated Discharge: 24 - 48 hours
Subjective/Interval History
-
Date of Service: October 21, 2024
feeling better today
cough improving
did well per PT, no needs
Objective Data
-
Labs:
Laboratory Results
10/21/24
07:51
Sodium 135
Potassium 3.4 L
Chloride 99
Carbon Dioxide 29
BUN 6 L
Creatinine 0.5 L
Glucose 109 H
Calcium 6.5 L*
Vital Signs:
Vital Signs
Temp Pulse Resp BP Pulse Ox
99.0 F 72 16 121/70 94
10/21/24 07:52 10/21/24 07:52 10/21/24 07:52 10/21/24 07:52 10/21/24 09:45
I&O
10/20/24 10/21/24 10/22/24
06:59 06:59 06:59
Intake Total 2740 / 2740
Output Total 675 / 675
Balance 2064
Review of Systems
-
History Source: Patient
All other systems: Reviewed and negative
Physical Exam
-
General: No Apparent Distress
HEENT: PERRLA
Respiratory: Rhonchi; Negative Wheezes
Cardiac: Regular Rhythm and S1/S2
GI: Soft and Nontender
Musculoskeletal: No Edema
Skin: Warm and Dry; Negative Rash
Neuro: AO x 3
Psych: Calm
Data Reviewed
-
Diagnostic Radiology: Report Reviewed by me
Labs: Labs Reviewed by me
--- NOTE | 2024-10-21 14:47 | CM ---
Patient seen at bedside.
IA completed.
Dx: pneumonia
Lives with in a 2 story home, 3 steps to enter, flight of stairs to bedroom
PLOF: Independent, does no use device
Denies DME
Denies HH, has had outpatient PT in past for knee replacement
Denies insecurities
No needs
PCP: Octavio Torres
Pharmacy: [facility]
PLAN: Home, no anticipated needs
[2024-10-21] MEDS: FLUSH (NSS) 1 FLUSH IV (15:25)
[2024-10-21 15:53] VITALS: BP 138/74
[2024-10-21] MEDS: LOVENOX 40 MG SC (17:43)
[2024-10-21] MEDS: OSCAL CAL 500 1000 MG PO (19:31)
[2024-10-21 23:21] VITALS: BP 110/55
[2024-10-22] MEDS: SYNTHROID 224 MCG PO (05:35)
[2024-10-22] MEDS: VANCOCIN 530 MG IV (05:37)
[2024-10-22] MEDS: ZOVIRAX 400 MG PO (07:46)
[2024-10-22] MEDS: ASPIR LOW (ENTERIC COATED) 81 MG PO (07:46)
[2024-10-22] MEDS: MAXIPIME 2000 MG IV (07:46)
[2024-10-22] MEDS: OSCAL CAL 500 1000 MG PO (07:46)
[2024-10-22] MEDS: VITAMIN D3 (cholecalciferol) 25 MCG PO (07:46)
[2024-10-22] MEDS: MUCINEX 600 MG PO (07:46)
[2024-10-22] MEDS: TAMIFLU 75 MG PO (07:46)
[2024-10-22] MEDS: STERILE WATER FOR INJECTION 10 ML IV (07:46)
[2024-10-22 07:50] VITALS: BP 135/73
[2024-10-22 09:02] LABS: Blood Urea Nitrogen 7 mg/dl (9-20); Calcium 6.8 mg/dl (8.4-10.2); Carbon Dioxide 30 mmol/L (22-30); Chloride 101 mmol/L (98-107); Estimated Creatinine Clearance 120 ml/min; Glucose 92 mg/dl (70-99); Potassium 3.6 mmol/L (3.5-5.1); Sodium 138 mmol/L (135-145); eGFR > 60.00
[2024-10-22 09:58] LABS: Ionized Calcium 0.95 mMOL/L (1.15-1.33)
--- NOTE | 2024-10-22 12:01 | CM ---
CM reviewed chart, reviewed with Hospitalist, stable for discharge today. Patient seen bedside, reports no needs. IMM reviewed verbally, provided with copy, placed in chart. Patient confirms transportation home. CM will continue to follow for all
discharge planning needs.
Plan; home no needs.
[2024-10-22] MEDS: CALCIUM GLUCONATE 100 IV (13:21)
--- NOTE | 2024-10-22 14:19 | W.PN.HOSP.TC ---
Addendum entered and electronically signed by Rayray Levi MD 10/24/24 16:35:
[id number]
Original Note:
Today's Communication/Plan
-
complete tamiflu
Complete abx course
Calcium repletion
Assessment / Plan
Assessment / Plan
69-year-old male past medical history of multiple myeloma on chemotherapy, hypothyroidism, presenting with shortness of breath and cough for the past 10 days.� Temperature 100.1.� Doxycycline for 3 days.� Also with vomiting and diarrhea.
Patient positive for influenza here.�
Chest x-ray shows patchy bibasilar/bilateral airspace disease suspicious for multifocal pneumonia.
Labs show hypokalemia.� Hypocalcemia.
# Influenza A
Superimposed Bacterial Bilateral pneumonia
-covid negative
-continue Tamiflu (through morning 10/24)
-continue Cefepime/Vanco (day 11/02) - DC vanc, MRSA negative. DC on cefdinir to complete 10 day course, and doxy to complete 5 day course to cover atypicals
-QTc precludes Levaquin
-Chest x-ray with impression of patchy bibasilar/bilateral airspace disease suspicious for multifocal pneumonia, unchanged to slightly worsened compared to the prior study. No parapneumonic effusions.
-Tylenol as needed for fever and pain
-Mucinex for cough
-Nebs as needed for short of breath and wheezing
# Abdominal tenderness associate with nausea vomiting diarrhea likely related to Influenza
-C. Diff and Norovirus negative
-improved
-tolerating diet
#Hypokalemia
-replete
Hypocalcemia
-start vitamin D repletion
-PTH - not appropriately elevated
-additional IV Calcium today
-Calcium increased
-F/u Ca outpt
# History of multiple myeloma
-Last chemo on 10/09, next chemo in 2 weeks
-Acyclovir continued
-Oncology consult appreciated
# Anemia of chronic disease
-Hemoglobin stable at 11.4
-No active bleeding
-Continue to monitor
# History of thyroid cancer status post thyroidectomy
# Postsurgical hypothyroidism
-Levothyroxine continued
# DVT prophylaxis
-Lovenox subcu
# CODE STATUS
-Full code
More than 30 minutes spent in discharge including
Final examination of the patient
Summarizing hospital stay
Instructions for continuing care to all relevant caregivers
Preparation of discharge records, prescriptions, and referral forms
Total time spent (37 in minutes):
Anticipated Discharge: Today
Subjective/Interval History
-
Date of Service: October 22, 2024
feels better
Objective Data
-
Labs:
Laboratory Results
10/22/24
07:27
Sodium 138
Potassium 3.6
Chloride 101
Carbon Dioxide 30
BUN 7 L
Creatinine 0.5 L
Glucose 92
Calcium 6.8 L*
Vital Signs:
Vital Signs
Temp Pulse Resp BP Pulse Ox
98.5 F 76 16 135/73 96
10/22/24 07:50 10/22/24 07:50 10/22/24 07:50 10/22/24 07:50 10/22/24 07:50
I&O
10/21/24 10/22/24 10/23/24
06:59 06:59 06:59
Intake Total 2740 / 2740 1300 / 1300
Output Total 675 / 675 600 / 600
Balance 5 / 2064 700 / 700
Review of Systems
-
History Source: Patient
All other systems: Not reviewed unless documented
Physical Exam
-
General: No Apparent Distress
HEENT: PERRLA
Respiratory: Clear to Auscultation; Negative Wheezes
Cardiac: Regular Rhythm and S1/S2
GI: Soft and Nontender
Musculoskeletal: No Edema
Skin: Warm and Dry; Negative Rash
Neuro: AO x 3
Psych: Calm
Data Reviewed
-
Diagnostic Radiology: Report Reviewed by me
Labs: Labs Reviewed by me
--- NOTE | 2024-10-22 14:25 | W.DS.TRANS ---
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
-
Discharge Instructions:
Discharge Diagnosis/Procedures
# Influenza A
Superimposed Bacterial Bilateral pneumonia
#Hypocalcemia
Activity As tolerated
Blood Work calcium levels in 3-5 days with pcp/oncology
Instructions:
Stand-Alone Forms:
Changes to Home Medications: Yes
Discharge Medications:
DC Medications w/original date entered in [employer]
acyclovir 400 mg tablet 400 mg PO BID ANTI VIRAL 10/19/24
aspirin 81 mg tablet,delayed release 81 mg PO DAILY Blood Clot Prevention/Tx 10/19/24
bortezomib 3.5 mg injection powder for solution (Velcade) 2.4 mg IV Q2W Antineoplastic Agent 10/19/24
denosumab 120 mg/1.7 mL (70 mg/mL) subcutaneous solution (Xgeva) 120 mg SC Q4W Bone-Modifying Agent 10/19/24
dexamethasone 4 mg tablet 20 mg PO UD INFLAMMATION 10/19/24
lenalidomide 10 mg capsule (Revlimid) 10 mg PO UD Angiogenesis Inhibitor 10/19/24
levothyroxine 112 mcg tablet (Synthroid) 224 mcg PO DAILY Thyroid 10/19/24
loperamide 2 mg tablet 2 mg PO Q4HPRN PRN diarrhea 10/19/24
montelukast 10 mg tablet (Singulair) 10 mg PO UD Lung/Breathing Issues 10/19/24
ondansetron HCl 8 mg tablet 8 mg PO [id number] PRN nausea 10/19/24
calcium carbonate 1,000 mg (2 x 500 mg calcium (1,250 mg)) PO BID 30 days #120 tabs 10/22/24
cefdinir 300 mg capsule 300 mg PO BID 7 days #14 caps 10/22/24
cholecalciferol (vitamin D3) 25 mcg (1,000 unit) tablet 25 mcg PO DAILY 30 days #30 tabs 10/22/24
doxycycline hyclate 100 mg capsule 100 mg PO BID Infection 3 days #6 caps 10/22/24
guaifenesin 600 mg tablet, extended release 12 hr 600 mg PO Q12 7 days #14 tabs 10/22/24
oseltamivir 75 mg capsule 75 mg PO BID 3 days #5 caps 10/22/24
Home Medication Changes
calcium carbonate 1,000 mg (2 x 500 mg calcium (1,250 mg)) PO BID 30 days #120 tabs 10/22/24
cefdinir 300 mg capsule 300 mg PO BID 7 days #14 caps 10/22/24
cholecalciferol (vitamin D3) 25 mcg (1,000 unit) tablet 25 mcg PO DAILY 30 days #30 tabs 10/22/24
doxycycline hyclate 100 mg capsule 100 mg PO BID Infection 3 days #6 caps 10/22/24
guaifenesin 600 mg tablet, extended release 12 hr 600 mg PO Q12 7 days #14 tabs 10/22/24
oseltamivir 75 mg capsule 75 mg PO BID 3 days #5 caps 10/22/24
Pending Results: No
[2024-10-22 15:00] VITALS: BP 146/67
--- NOTE | 2024-10-22 15:00 | PTCARENOTE ---
Patient ready for discharge. Removed IV, obtained vitals and went over discharge instructions with patient and patient's . Patient ambulated out of hospital.
[2024-10-22 18:53] LABS: Hepatitis C Antibody Negative (Negative)
== END 2024-10-22 15:09 | disposition home or self-care (01) | DRG 194 ==
LOC: 4 WEST ACU 16:28
PROVIDERS: Emergency Medicine; Registered Nurse; Student in an Organized Health Care Education/Training Program; ADMITTING PHYSICIAN Hospitalist; ATTENDING PHYSICIAN Internal Medicine; CONSULT PHYSICIAN Internal Medicine Hematology & Oncology; EMERGENCY PHYSICIAN Emergency Medicine; FAMILY PHYSICIAN Family Medicine
DX: J10.00 Influenza due to other identified influenza virus with unspecified type of pneumonia (principal); C90.00 Multiple myeloma not having achieved remission; D84.9 Immunodeficiency, unspecified; Z11.52 Encounter for screening for COVID-19; E87.6 Hypokalemia; E83.51 Hypocalcemia; D63.8 Anemia in other chronic diseases classified elsewhere; Z85.850 Personal history of malignant neoplasm of thyroid; E89.0 Postprocedural hypothyroidism; Z79.82 Long term (current) use of aspirin; Z79.890 Hormone replacement therapy
CPT/HCPCS: 71046; 80048; 80053; 82040; 82306; 82310; 82330; 83605; 83735; 83970; 85025; 86803; 87040; 87045; 87046; 87070; 87205; 87324; 87427; 87449; 87502; 87798; 87811; 93005; 96361; 96365; 96366; 96375; 99285

== ENCOUNTER → 2024-11-09 08:14 | Outpatient (REF) | payer OTHER, SELFPAY | LOC: RAD 08:14 | PROVIDERS: ATTENDING PHYSICIAN Family Medicine | DX: R10.11 Right upper quadrant pain (principal) | CPT/HCPCS: 74246; 74248; 76700 ==

== ENCOUNTER → 2025-02-07 09:24 | Outpatient (REF) | payer OTHER, SELFPAY ==
[2025-02-07 10:26] LABS: Hematocrit 28.4 % (39.0-52.0); Hemoglobin 9.4 g/dL (13.0-18.0); Mean Corp Hgb Conc. 33.1 g/dL (33.0-37.0); Mean Corpuscular Hgb 32.1 pg (27.0-31.0); Mean Corpuscular Volume 96.9 fL (80.0-94.0); Platelet Count 156 10^3/uL (130-400); Red Blood Cell Count 2.93 10^6/uL (4.70-6.10); Red Cell Dist. Width 14.7 % (11.5-14.5); White Blood Cell Count 3.9 10^3/uL (4.8-10.8)
[2025-02-07 11:01] LABS: ALT (SGPT) 37 U/L (0-50); AST (SGOT) 30 U/L (17-59); Albumin 3.9 g/dl (3.5-5.0); Alkaline Phosphatase 87 U/L (38-126); Blood Urea Nitrogen 11 mg/dl (9-20); Calcium 8.5 mg/dl (8.4-10.2); Carbon Dioxide 28 mmol/L (22-30); Chloride 108 mmol/L (98-107); Glucose 96 mg/dl (70-99); Magnesium 2.2 mg/dl (1.6-2.3); Potassium 4.3 mmol/L (3.5-5.1); Sodium 141 mmol/L (135-145); Total Bilirubin 0.2 mg/dl (0.2-1.3); Total Protein 6.3 g/dl (6.3-8.2); eGFR > 60.00
[2025-02-07 11:20] LABS: % Eosinophils 8.2 % (0-6); % Immature Granulocytes 0.8 % (0-0.5); Absolute Eosinophils 0.3 10^3/uL (0-0.7); Absolute Lymphocytes 1.3 10^3/uL (1.2-3.4); Absolute Monocytes 0.7 10^3/uL (0.1-0.6); Absolute Neutrophils 1.5 10^3/uL (1.4-6.5); Nucleated Red Blood Cells % 0 % (-)
== END ==
LOC: REG 09:24
PROVIDERS: FAMILY PHYSICIAN Family Medicine; OTHER PHYSICIAN Internal Medicine Hematology & Oncology
DX: C90.00 Multiple myeloma not having achieved remission (principal)
CPT/HCPCS: 36415; 80053; 83735; 85025

== ENCOUNTER → 2025-02-11 14:14 | Outpatient (REF) | payer OTHER, SELFPAY ==
[2025-02-11 15:35] LABS: ALT (SGPT) 27 U/L (0-50); AST (SGOT) 26 U/L (17-59); Albumin 4.2 g/dl (3.5-5.0); Alkaline Phosphatase 83 U/L (38-126); Blood Urea Nitrogen 11 mg/dl (9-20); Carbon Dioxide 27 mmol/L (22-30); Chloride 108 mmol/L (98-107); Glucose 96 mg/dl (70-99); Magnesium 2.1 mg/dl (1.6-2.3); Sodium 140 mmol/L (135-145); Total Bilirubin 0.3 mg/dl (0.2-1.3); Total Protein 6.8 g/dl (6.3-8.2); eGFR > 60.00
[2025-02-11 15:43] LABS: Hematocrit 27.8 % (39.0-52.0); Hemoglobin 9.7 g/dL (13.0-18.0); Mean Corp Hgb Conc. 34.9 g/dL (33.0-37.0); Mean Corpuscular Hgb 33.4 pg (27.0-31.0); Mean Corpuscular Volume 95.9 fL (80.0-94.0); Mean Platelet Volume 9.4 fL (7.4-10.4); Platelet Count 243 10^3/uL (130-400); Red Cell Dist. Width 15.5 % (11.5-14.5); White Blood Cell Count 4.5 10^3/uL (4.8-10.8)
[2025-02-11 16:23] LABS: % Basophils 1.3 % (0-2); % Eosinophils 10.9 % (0-6); % Immature Granulocytes 0.7 % (0-0.5); % Lymphocytes 27.3 % (20.5-51.1); % Monocytes 17.5 % (1.7-9.3); % Neutrophils 42.3 % (42.2-75.2); Absolute Basophils 0.1 10^3/uL (0-0.2); Absolute Eosinophils 0.5 10^3/uL (0-0.7); Absolute Lymphocytes 1.2 10^3/uL (1.2-3.4); Absolute Monocytes 0.8 10^3/uL (0.1-0.6); Absolute Neutrophils 1.9 10^3/uL (1.4-6.5); Nucleated Red Blood Cells % 0 % (-)
== END ==
LOC: REG 14:14
PROVIDERS: FAMILY PHYSICIAN Family Medicine; OTHER PHYSICIAN Internal Medicine Hematology & Oncology
DX: C90.00 Multiple myeloma not having achieved remission (principal)
CPT/HCPCS: 36415; 80053; 83735; 85025

== ENCOUNTER → 2025-02-14 12:43 | Outpatient (REF) | payer OTHER, SELFPAY ==
[2025-02-14 13:20] LABS: Hematocrit 30.7 % (39.0-52.0); Hemoglobin 10.6 g/dL (13.0-18.0); Mean Corp Hgb Conc. 34.5 g/dL (33.0-37.0); Mean Corpuscular Hgb 32.9 pg (27.0-31.0); Mean Corpuscular Volume 95.3 fL (80.0-94.0); Mean Platelet Volume 9.5 fL (7.4-10.4); Platelet Count 266 10^3/uL (130-400); Red Blood Cell Count 3.22 10^6/uL (4.70-6.10); Red Cell Dist. Width 15.7 % (11.5-14.5); White Blood Cell Count 4.9 10^3/uL (4.8-10.8)
[2025-02-14 14:21] LABS: ALT (SGPT) 26 U/L (0-50); AST (SGOT) 24 U/L (17-59); Albumin 4.2 g/dl (3.5-5.0); Alkaline Phosphatase 81 U/L (38-126); Blood Urea Nitrogen 12 mg/dl (9-20); Calcium 9.8 mg/dl (8.4-10.2); Carbon Dioxide 27 mmol/L (22-30); Chloride 108 mmol/L (98-107); Glucose 104 mg/dl (70-99); Magnesium 1.9 mg/dl (1.6-2.3); Potassium 4.2 mmol/L (3.5-5.1); Sodium 139 mmol/L (135-145); Total Bilirubin 0.2 mg/dl (0.2-1.3); Total Protein 6.8 g/dl (6.3-8.2); eGFR > 60.00
[2025-02-14 14:22] LABS: % Basophils 1.4 % (0-2); % Eosinophils 8.6 % (0-6); % Immature Granulocytes 0.4 % (0-0.5); % Monocytes 12.8 % (1.7-9.3); % Neutrophils 55.8 % (42.2-75.2); Absolute Basophils 0.1 10^3/uL (0-0.2); Absolute Eosinophils 0.4 10^3/uL (0-0.7); Absolute Monocytes 0.6 10^3/uL (0.1-0.6); Absolute Neutrophils 2.7 10^3/uL (1.4-6.5); Nucleated Red Blood Cells % 0 % (-)
== END ==
LOC: REG 12:43
PROVIDERS: ATTENDING PHYSICIAN Psychiatry & Neurology Neurology; FAMILY PHYSICIAN Family Medicine
DX: C90.00 Multiple myeloma not having achieved remission (principal)
CPT/HCPCS: 36415; 80053; 83735; 85025